=== PATIENT | female | born 1965 | race Caucasian/White ===

== ENCOUNTER 2016-09-23 10:27 | Emergency (ER) | payer OTHER ==
[~2016-09-23] VITALS: Ht 172.7 cm; Wt 79.4 kg
[~2016-09-23 10:27] MED LIST: AMOXIL500 M1 PO; ANAPROX DS550 MG PO; ATIVAN1 MG PO; ATIVAN2 M1 PO; AUGMENTIN 875875 MG PO; BACTRIM DS 8001 TA1 PO; CATAFLAM50 MG PO; CLEOCIN HCL150 MG PO; CORTISPORIN 1%7.5 M1 OP; DARVOCET N 1001 TAB PO; DILANTIN100 MG PO; FLEXERIL10 MG PO; KEFLEX500 MG PO; KEPPRA500 MG PO; LISINOPRIL/HCTZ1 TA2 PO; LORATAB; MOTRIN800 MG PO; MUCINEX D 600 M1 TE1 PO; NEURONTIN400 MG PO; PREDNISONE20 MG PO; PROVERA5 MG PO; REMERON45 MG PO; SEPTRA DS 800 M1 TAB PO; TORADOL10 MG PO; TRAMADOL HCL50 MG PO; TRIMOX500 MG PO; VALIUM10 MG PO; VICODIN 5/500 505 MG PO; ZITHROMAX250 MG PO; ZYRTEC10 MG PO
[2016-09-23 10:35] VITALS: BP 132/71
[2016-09-23] MEDS ORDERED: SEROQUEL100 MG PO (10:39)
[2016-09-23 11:13] LABS: BILIRUBIN NEGATIVE (NEGATIVE); BLOOD NEGATIVE (NEGATIVE); CLARITY CLEAR (CLEAR); COLOR YELLOW (YELLOW); GLUCOSE NEGATIVE (NEGATIVE); KETONE TRACE (NEGATIVE); LEUKO ESTERASE NEGATIVE (NEGATIVE); NITRITE NEGATIVE (NEGATIVE); PH 5.5 (5.0-9.0); PROTEIN NEGATIVE (NEGATIVE); SPECIFIC GRAVITY >= 1.030 (1.005-1.030); UROBILINOGEN 0.2 E.U./dl (0.2-1.0)
[2016-09-23 11:20] LABS: BACTERIA TRACE
[2016-09-23 11:21] LABS: RBC 0-2 rbc/hpf (0-2)
[2016-09-23 11:22] LABS: URINE REFLEX COMMENT NO (NO)
[2016-09-23 11:28] LABS: BASO # 0.1 10*3/uL (0.0-0.1); BASO % 0.8 % (0.0-1.0); EOS % 9.3 % (1.0-4.0); HEMATOCRIT 37.2 % (37.0-47.0); HEMOGLOBIN 12.6 g/dl (12.0-16.0); IG # 0.1 10*3/uL (0.0-0.1); LYMPH # 1.7 10*3/uL (1.3-4.4); LYMPH % 16.3 % (27.0-41.0); MEAN CORPUSCULAR HGB 30.8 pg (27.0-31.0); MEAN CORPUSCULAR HGB CONC 33.9 g/dl (33.0-37.0); MEAN PLATELET VOLUME 10.3 fl (9.6-12.3); MONO % 9.3 % (3.0-9.0); NEUT # 6.6 10*3/uL (2.3-7.9); NEUT % 63.8 % (47.0-73.0); PLATELET COUNT AUTOMATED 238 10*3/uL (130-400); RED BLOOD COUNT 4.09 10*6/uL (4.10-5.10); RED CELL DISTRI WIDTH 13.3 % (0-14.5); WHITE BLOOD COUNT 10.3 10*3/uL (4.8-10.8)
[2016-09-23 11:42] LABS: ALBUMIN 3.1 gm/dl (3.1-4.5); ALKALINE PHOSPHATASE 85 U/L (45-117); BILIRUBIN, TOTAL 0.1 mg/dl (0.2-1.0); BUN 12 mg/dl (7-24); CARBON DIOXIDE 25 mmol/L (21-32); CHLORIDE 110 mmol/L (98-107); EST GLOM FILT AFRICAN AMERICAN > 60 ml/min; GLUCOSE 93 mg/dL (65-99); MAGNESIUM 1.9 mg/dL (1.5-2.1); POTASSIUM 4.2 mmol/L (3.5-5.1); SGOT/AST 13 IU/L (3-35); SGPT/ALT 20 U/L (12-78); SODIUM 139 mmol/L (136-145); TOTAL PROTEIN 6.8 gm/dL (6.4-8.2)
[2016-09-23] MEDS ORDERED: PREDNISONE50 MG PO (12:25)
[2016-09-23] MEDS ORDERED: CLINDAMYCIN150 MG PO (12:25)
== END 2016-09-23 12:52 | disposition home or self-care (01) ==
LOC: ED 10:27
PROVIDERS: Emergency Medicine
DX: R10.30 Lower abdominal pain, unspecified (principal); L02.414 Cutaneous abscess of left upper limb; A63.0 Anogenital (venereal) warts; Z88.6 Allergy status to analgesic agent

== ENCOUNTER 2016-09-27 18:43 | Emergency (ER) | payer OTHER ==
[~2016-09-27] VITALS: Ht 172.7 cm; Wt 77.1 kg
[~2016-09-27 18:43] MED LIST changes: +CLINDAMYCIN150 MG PO; +PREDNISONE50 MG PO; +SEROQUEL100 MG PO
[2016-09-27] MEDS ORDERED: LAMICTAL25 MG PO (18:49)
[2016-09-27 19:10] LABS: BASO # 0.1 10*3/uL (0.0-0.1); BASO % 0.5 % (0.0-1.0); HEMATOCRIT 37.4 % (37.0-47.0); HEMOGLOBIN 12.2 g/dl (12.0-16.0); LYMPH # 1.4 10*3/uL (1.3-4.4); MEAN CELL VOLUME 93.3 fl (81.0-99.0); MEAN CORPUSCULAR HGB 30.4 pg (27.0-31.0); MEAN CORPUSCULAR HGB CONC 32.6 g/dl (33.0-37.0); MEAN PLATELET VOLUME 10.4 fl (9.6-12.3); MONO # 0.3 10*3/uL (0.1-1.0); NEUT # 7.6 10*3/uL (2.3-7.9); NEUT % 81.1 % (47.0-73.0); PLATELET COUNT AUTOMATED 265 10*3/uL (130-400); RED BLOOD COUNT 4.01 10*6/uL (4.10-5.10); RED CELL DISTRI WIDTH 13.2 % (0-14.5); WHITE BLOOD COUNT 9.3 10*3/uL (4.8-10.8)
[2016-09-27 19:24] LABS: ALBUMIN 3.4 gm/dl (3.1-4.5); ALKALINE PHOSPHATASE 76 U/L (45-117); BILIRUBIN, TOTAL 0.2 mg/dl (0.2-1.0); BUN 21 mg/dl (7-24); CARBON DIOXIDE 31 mmol/L (21-32); CHLORIDE 104 mmol/L (98-107); EST GLOM FILT AFRICAN AMERICAN > 60 ml/min; GLUCOSE 106 mg/dL (65-99); POTASSIUM 4.3 mmol/L (3.5-5.1); SGOT/AST 13 IU/L (3-35); SGPT/ALT 29 U/L (12-78); SODIUM 144 mmol/L (136-145); TOTAL PROTEIN 6.8 gm/dL (6.4-8.2)
[2016-09-27 19:40] VITALS: BP 116/80
[2016-09-27 19:41] LABS: BILIRUBIN NEGATIVE (NEGATIVE); BLOOD TRACE-INTACT (NEGATIVE); CLARITY CLEAR (CLEAR); COLOR YELLOW (YELLOW); GLUCOSE NEGATIVE (NEGATIVE); KETONE NEGATIVE (NEGATIVE); LEUKO ESTERASE NEGATIVE (NEGATIVE); NITRITE NEGATIVE (NEGATIVE); PROTEIN NEGATIVE (NEGATIVE); SPECIFIC GRAVITY 1.025 (1.005-1.030); UROBILINOGEN 0.2 E.U./dl (0.2-1.0)
[2016-09-27 19:49] LABS: RBC 0-2 rbc/hpf (0-2)
[2016-09-27 19:50] LABS: URINE REFLEX COMMENT NO (NO); WBC 0-2 wbc/hpf (0-5)
== END 2016-09-27 21:07 | disposition home or self-care (01) ==
LOC: ED 18:43
PROVIDERS: Registered Nurse
DX: R10.30 Lower abdominal pain, unspecified (principal); F17.200 Nicotine dependence, unspecified, uncomplicated; Z88.6 Allergy status to analgesic agent

== ENCOUNTER 2017-02-10 13:52 | Inpatient (IN) | payer OTHER ==
[~2017-02-10] VITALS: Ht 172.7 cm; Wt 80.3 kg
--- NOTE | ~2017-02-10 | PR ---
[place], [place] PROGRESS NOTE NAME: LEROY SCHERER [facility] #: [id number] UNIT #: [id number] ROOM: 519 DOCTOR: SALLY CHAVEZ MD BIRTHDATE: [birth year] DOS: 02/12/2017 SUBJECTIVE: The patient was seen at her bedside today 02/12/2017 for followup of peripheral edema. She is a 51-year-old woman who presented to the hospital with leg swelling. We were asked to determine if she had a cardiac cause. The patient has been diuresed and her fluid balance is negative 3.7 liters for the last 2 days. She is breathing easily and feels well. PHYSICAL EXAMINATION: VITAL SIGNS: Today, her pulse is 82 and regular, blood pressure 117/80. She is afebrile. She weighs 80.3 kg and has a body mass index of 26.9. HEENT: Normocephalic, atraumatic. Extraocular muscles are intact. Sclerae are clear. Pupils are round and reactive to light. The oral mucosa is moist. Tongue is midline. NECK: Supple. She has no jugular distention or hepatojugular reflux. Carotids are full. LUNGS: Respirations are unlabored. Chest is clear to auscultation and percussion. She has no presacral edema. HEART: Has a regular rhythm with a soft S4 gallop, but no S3 or murmur. The PMI is not displaced. ABDOMEN: Benign. EXTREMITIES: Showed trace edema of the ankles. I reviewed the echocardiogram, which showed no evidence for left ventricular systolic dysfunction, significant diastolic dysfunction, or valve disease. She does not show any signs of hepatic failure, renal failure, or malnutrition. Review of her medications show that she is on significant doses of ibuprofen, which can lead to salt and water retention. She is also on Remeron which causes fluid retention in 2% of the patient's IMPRESSION: 1. Peripheral edema, improving with diuresis. 2. Bipolar disorder with major depression. 3. History of seizure disorder. 4. History of substance abuse. PLAN: I think it is most likely that her peripheral edema is due to the combination of ibuprofen, mirtazapine, and the current humidity. I do not see any evidence for a cardiac cause for her swelling. I would recommend that her ibuprofen be decreased or discontinued. She should continue to watch the salt in her diet as much as possible. No other cardiac workup or change in management is indicated at this time. We will be available to see her as needed, but for now, we will sign off her care. I thank the hospitalist physicians for asking our advice regarding her assessment. [place], [place] PROGRESS NOTE NAME: LEROY SCHERER UNIT #: [id number] ROOM: [facility] DOCTOR: SALLY CHAVEZ MD BIRTHDATE: [birth year] SALLY CHAVEZ MD CM:[facility] [id number] SALLY CHAVEZ MD 02/12/17 1125 interface
[~2017-02-10 13:52] MED LIST changes: +LAMICTAL25 MG PO; -SEROQUEL100 MG PO; +SEROQUEL400 M1 PO
[2017-02-10] MEDS ORDERED: SUBOXONE 8 MG-1 EACH SL (13:58)
[2017-02-10] MEDS ORDERED: AMOXICILLIN500 M3 PO (13:58)
[2017-02-10 14:01] VITALS: BP 131/86
[2017-02-10 15:27] LABS: BASO # 0.1 10*3/uL (0.0-0.1); BASO % 0.9 % (0.0-1.0); EOS # 0.2 10*3/uL (0.0-0.4); EOS % 2.4 % (1.0-4.0); HEMATOCRIT 39.2 % (37.0-47.0); HEMOGLOBIN 13.1 g/dl (12.0-16.0); LYMPH # 2.1 10*3/uL (1.3-4.4); LYMPH % 28.2 % (27.0-41.0); MEAN CORPUSCULAR HGB 31.4 pg (27.0-31.0); MEAN CORPUSCULAR HGB CONC 33.4 g/dl (33.0-37.0); MEAN PLATELET VOLUME 10.2 fl (9.6-12.3); MONO # 0.7 10*3/uL (0.1-1.0); MONO % 9.4 % (3.0-9.0); NEUT # 4.4 10*3/uL (2.3-7.9); NEUT % 58.7 % (47.0-73.0); PLATELET COUNT AUTOMATED 200 10*3/uL (130-400); RED BLOOD COUNT 4.17 10*6/uL (4.10-5.10); RED CELL DISTRI WIDTH 13.9 % (0-14.5); WHITE BLOOD COUNT 7.5 10*3/uL (4.8-10.8)
[2017-02-10 15:40] LABS: ACT PARTIAL THROMBO TIME 27.6 SECONDS (20.8-31.5)
[2017-02-10 15:45] LABS: ALBUMIN 3.1 gm/dl (3.1-4.5); ALKALINE PHOSPHATASE 83 U/L (45-117); BUN 10 mg/dl (7-24); CHLORIDE 106 mmol/L (98-107); CKMB 1.5 ng/ml (0.5-3.6); CPK 64 U/L (26-192); CREATININE 0.63 mg/dL (0.55-1.02); LIPASE 91 U/L (73-393); MAGNESIUM 1.8 mg/dL (1.5-2.1); POTASSIUM 4.4 mmol/L (3.5-5.1); SGOT/AST 13 IU/L (3-35); SGPT/ALT 18 U/L (12-78); SODIUM 140 mmol/L (136-145); TOTAL PROTEIN 6.6 gm/dL (6.4-8.2)
[2017-02-10 15:48] LABS: TROPONIN I < 0.015 ng/ml (<0.045)
[2017-02-10 16:20] VITALS: BP 119/85
--- NOTE | 2017-02-10 17:00 | NUR ---
Time: 1699\ A 51 year old FEMALE admitted to 5E under services of DR. PADMINI FOWLER,TRUONG. Pt. arrived via stretcher from ER. Chief complaint: FEET AND ANKLE SWELLING. PARTHA BAUGH
[2017-02-10] MEDS ORDERED: CLARITIN10 MG PO (17:03)
[2017-02-10] MEDS ORDERED: DILANTIN100 MG PO (17:04)
[2017-02-10] MEDS ORDERED: NEURONTIN600 MG PO (17:04)
[2017-02-10] MEDS ORDERED: IBU800 M1 PO (17:05)
--- NOTE | 2017-02-10 17:06 | NUR ---
PT MED REC UPDATED AND VERIFIED WITH PT'S PHARMACY RUSS REAVES.
--- NOTE | 2017-02-10 17:26 | NUR ---
DR. CHAVEZ NOTIFIED OF CONSULT.
[2017-02-10 17:49] VITALS: BP 146/88
--- NOTE | 2017-02-10 19:40 | NUR ---
reviewed home medications and nothing new added by patient.
[2017-02-10 20:00] VITALS: BP 124/72
[2017-02-11] VITALS: BP 107/58
[2017-02-11] MEDS ORDERED: DEPAKOTE DR500 MG PO (06:38)
--- NOTE | 2017-02-11 06:39 | NUR ---
WALKED INTO PATIENT ROOM AND PATIENT WAS TAKING A PRESCRIPTION PILL. ASKED PT. WHAT SHE TOOK AND SHE SAID "I JUST TOOK 800 MOTRIN." EXPLAINED TO PATIENT THAT WE DON'T SELF MEDICATE WHILE IN THE HOSPITAL AND FOUND PATIENT HAD HER HOME MEDICATIONS IN HER PURSE WITH HER. TOOK PT. HOME MEDICATIONS TO COUNT AND SEND TO PHARMACY.
[2017-02-11 06:48] LABS: HEMATOCRIT 44.3 % (37.0-47.0); HEMOGLOBIN 14.5 g/dl (12.0-16.0); MEAN CELL VOLUME 92.7 fl (81.0-99.0); MEAN CORPUSCULAR HGB 30.3 pg (27.0-31.0); MEAN CORPUSCULAR HGB CONC 32.7 g/dl (33.0-37.0); MEAN PLATELET VOLUME 11.4 fl (9.6-12.3); PLATELET COUNT AUTOMATED 244 10*3/uL (130-400); RED BLOOD COUNT 4.78 10*6/uL (4.10-5.10); RED CELL DISTRI WIDTH 13.5 % (0-14.5)
[2017-02-11 07:10] LABS: ALBUMIN 2.9 gm/dl (3.1-4.5); ALKALINE PHOSPHATASE 89 U/L (45-117); BUN 17 mg/dl (7-24); CHLORIDE 105 mmol/L (98-107); CHOLESTEROL 179 mg/dL (<200); CREATININE 1.04 mg/dL (0.55-1.02); FREE T4 0.55 ng/dl (0.76-1.46); HDL CHOLESTEROL 63 mg/dl (40-60); LDL CHOLESTEROL 96 mg/dL (9-159); MAGNESIUM 1.7 mg/dL (1.5-2.1); PHOSPHOROUS 3.8 mg/dL (2.5-4.9); POTASSIUM 3.8 mmol/L (3.5-5.1); SGOT/AST 17 IU/L (3-35); SGPT/ALT 21 U/L (12-78); SODIUM 140 mmol/L (136-145); TOTAL PROTEIN 6.8 gm/dL (6.4-8.2); TRIGLYCERIDES 100 mg/dl (<150); VLDL CHOLESTEROL 20 mg/dL (6-40)
[2017-02-11 07:15] LABS: THYROID STIM HORMONE (HS) 0.618 uIU/ml (0.358-4.75)
[2017-02-11 07:22] LABS: BASOPHILS 1 % (0-1); PLATELET SUFFICIENCY NORMAL (NORMAL); TOTAL CELLS COUNTED 100 #CELLS
[2017-02-11 07:55] LABS: VITAMIN D, 25-HYDROXY 28.4 ng/mL (30-100)
[2017-02-11 08:00] VITALS: BP 135/80
--- NOTE | 2017-02-11 08:16 | NUR ---
DENIES ANY COMPLAINTS.
--- NOTE | 2017-02-11 08:54 | NUR ---
Document Imaging Specialist in to talk to patient. Patient states lives at HOME IN AN APARTMENT ALONE with . There are 0 steps in the home. Physician: DR DIETRICH Pharmacy: [facility] Home health services: NONE Patient's level of ADLs: INDEPENDENT Patient has working utilities: YES DME: NONE Follow-up physician's appointment after d/c: PREFERS TO MAKE HER OWN APPT Does patient want to access PORTAL?: Discharge plan HOME. ALEXY AYOUB
--- NOTE | 2017-02-11 10:00 | NUR ---
AM MEDS TAKEN.
--- NOTE | 2017-02-11 11:00 | NUR ---
MEDICATED WITH MOTRIN FOR GENERALIZED PAIN.
--- NOTE | 2017-02-11 12:00 | NUR ---
NO FURTHER COMPLAINTS OF PAIN.
[2017-02-11 16:00] VITALS: BP 112/68
--- NOTE | 2017-02-11 19:06 | NUR ---
PATIENT UP AND AROUND WITH NO COMPLAINTS.
--- NOTE | 2017-02-11 19:30 | NUR ---
PATIENT MEDICATED WITH MOTRIN FOR C/O GENERALIZED DISCOMFORT. SEE EMAR. REINFORCED USE OF CALL LIGHT.
[2017-02-11 20:00] VITALS: BP 125/77
--- NOTE | 2017-02-11 21:00 | NUR ---
PATIENT RESTING QUIETLY. NO FURTHER C/O VOICED.
[2017-02-12] VITALS: BP 126/78
--- NOTE | 2017-02-12 00:33 | NUR ---
PATIENT MEDICATED WITH TYLENOL PER PRN ORDER FOR C/O LOWER BACK /SIDE PAIN. RATED PAIN A 7/10 WITH 10 BEING THE WORST. SEE EMAR. REINFORCED USE OF CALL LIGHT.
[2017-02-12 06:09] LABS: HEMATOCRIT 40.5 % (37.0-47.0); HEMOGLOBIN 13.3 g/dl (12.0-16.0); MEAN CELL VOLUME 93.5 fl (81.0-99.0); MEAN CORPUSCULAR HGB 30.7 pg (27.0-31.0); MEAN CORPUSCULAR HGB CONC 32.8 g/dl (33.0-37.0); MEAN PLATELET VOLUME 11.5 fl (9.6-12.3); PLATELET COUNT AUTOMATED 230 10*3/uL (130-400); RED BLOOD COUNT 4.33 10*6/uL (4.10-5.10); RED CELL DISTRI WIDTH 13.9 % (0-14.5); WHITE BLOOD COUNT 20.4 10*3/uL (4.8-10.8)
[2017-02-12 06:31] LABS: PLATELET SUFFICIENCY NORMAL (NORMAL); TOTAL CELLS COUNTED 100 #CELLS
[2017-02-12 06:47] LABS: ALBUMIN 3.3 gm/dl (3.1-4.5); ALKALINE PHOSPHATASE 86 U/L (45-117); BUN 17 mg/dl (7-24); CHLORIDE 104 mmol/L (98-107); CREATININE 0.77 mg/dL (0.55-1.02); POTASSIUM 4.3 mmol/L (3.5-5.1); SGOT/AST 18 IU/L (3-35); SGPT/ALT 25 U/L (12-78); SODIUM 138 mmol/L (136-145); TOTAL PROTEIN 7.1 gm/dL (6.4-8.2)
[2017-02-12 08:00] VITALS: BP 117/80
--- NOTE | 2017-02-12 08:53 | NUR ---
LACE BURN OUT TENDER VS. NO DC NEEDS.
--- NOTE | 2017-02-12 09:00 | NUR ---
PT RESTING IN BED, NO DISTRESS NOTED. PT DENIES ANY SOB, ON ROOM AIR. PT DOES HAVE A HACKING COUGH. EDEMA HAS DECREASED IN LOWER LEGS. PT DENIES ANY COMPLAINTS AT THIS TIME. CALL LIGHT WITHIN REACH.
[2017-02-12 12:00] VITALS: BP 107/73
[2017-02-12] MEDS ORDERED: NICODERM CQ1 EAC2 T (13:37)
[2017-02-12] MEDS ORDERED: AEROECLIPSE II1 EACH NEB (13:37)
[2017-02-12] MEDS ORDERED: PREDNISONE10 MG PO (13:37)
--- NOTE | 2017-02-12 13:59 | NUR ---
Discharge instructions reviewed with patient/family. Patient receptive and verbalizes understanding. Follow-up care arranged. Written instructions given to patient/family. IV site removed, pt denied transport and walked to lobby to meet ride. [address] [address]
[2017-02-13 06:11] LABS: HEPATITIS C AB <0.1 (0.0-0.9)
== END 2017-02-12 13:59 | disposition home or self-care (01) | DRG 292 ==
LOC: ED 13:52 → EDHOLD 15:58 → 5E 15:58
PROVIDERS: Internal Medicine; Nurse Practitioner Family; ADMIT Internal Medicine
DX: I50.9 Heart failure, unspecified (principal); E44.0 Moderate protein-calorie malnutrition; J44.9 Chronic obstructive pulmonary disease, unspecified; E07.81 Sick-euthyroid syndrome; D72.9 Disorder of white blood cells, unspecified; G40.909 Epilepsy, unspecified, not intractable, without status epilepticus; F31.9 Bipolar disorder, unspecified; F17.210 Nicotine dependence, cigarettes, uncomplicated; E66.3 Overweight; E55.9 Vitamin D deficiency, unspecified; T43.025A Adverse effect of tetracyclic antidepressants, initial encounter; T39.315A Adverse effect of propionic acid derivatives, initial encounter; I34.0 Nonrheumatic mitral (valve) insufficiency; Z88.5 Allergy status to narcotic agent; Z79.899 Other long term (current) drug therapy; Z90.49 Acquired absence of other specified parts of digestive tract; Z83.3 Family history of diabetes mellitus; Z82.49 Family history of ischemic heart disease and other diseases of the circulatory system; Y92.89 Other specified places as the place of occurrence of the external cause; Z68.26 Body mass index [BMI] 26.0-26.9, adult; R09.89 Other specified symptoms and signs involving the circulatory and respiratory systems

== ENCOUNTER 2017-03-07 15:08 | Emergency (ER) | payer OTHER ==
[~2017-03-07] VITALS: Wt 77.1 kg
[~2017-03-07 15:08] MED LIST changes: +AEROECLIPSE II1 EACH NEB; +AMOXICILLIN500 M3 PO; +CLARITIN10 MG PO; +DEPAKOTE DR500 MG PO; +IBU800 M1 PO; +NEURONTIN600 MG PO; +NICODERM CQ1 EAC2 T; +PREDNISONE10 MG PO; +SUBOXONE 8 MG-1 EACH SL
[2017-03-07 15:25] VITALS: BP 111/73
[2017-03-07 16:27] LABS: BASO # 0.1 10*3/uL (0.0-0.1); BASO % 0.9 % (0.0-1.0); EOS # 0.3 10*3/uL (0.0-0.4); EOS % 3.6 % (1.0-4.0); HEMATOCRIT 47.4 % (37.0-47.0); LYMPH # 2.9 10*3/uL (1.3-4.4); LYMPH % 31.3 % (27.0-41.0); MEAN CELL VOLUME 90.8 fl (81.0-99.0); MEAN CORPUSCULAR HGB 30.7 pg (27.0-31.0); MEAN CORPUSCULAR HGB CONC 33.8 g/dl (33.0-37.0); MEAN PLATELET VOLUME 10.3 fl (9.6-12.3); MONO # 0.8 10*3/uL (0.1-1.0); MONO % 8.5 % (3.0-9.0); NEUT # 5.2 10*3/uL (2.3-7.9); NEUT % 55.5 % (47.0-73.0); PLATELET COUNT AUTOMATED 255 10*3/uL (130-400); RED BLOOD COUNT 5.22 10*6/uL (4.10-5.10); RED CELL DISTRI WIDTH 13.2 % (0-14.5); WHITE BLOOD COUNT 9.4 10*3/uL (4.8-10.8)
[2017-03-07 16:40] LABS: ALBUMIN 3.7 gm/dl (3.1-4.5); ALKALINE PHOSPHATASE 109 U/L (45-117); BUN 14 mg/dl (7-24); CHLORIDE 101 mmol/L (98-107); CREATININE 0.76 mg/dL (0.55-1.02); POTASSIUM 3.9 mmol/L (3.5-5.1); SGOT/AST 19 IU/L (3-35); SGPT/ALT 31 U/L (12-78); SODIUM 135 mmol/L (136-145); TOTAL PROTEIN 7.8 gm/dL (6.4-8.2)
[2017-03-07] MEDS ORDERED: SEPTDS PO (17:28)
== END 2017-03-07 17:30 | disposition home or self-care (01) ==
LOC: ED 15:08
PROVIDERS: Nurse Practitioner Family
DX: M79.89 Other specified soft tissue disorders (principal); F12.10 Cannabis abuse, uncomplicated; F17.200 Nicotine dependence, unspecified, uncomplicated; F14.10 Cocaine abuse, uncomplicated; Z88.6 Allergy status to analgesic agent; Z79.899 Other long term (current) drug therapy

== ENCOUNTER 2017-09-13 19:50 | Emergency (ER) | payer OTHER ==
[~2017-09-13] VITALS: Wt 71.7 kg
[~2017-09-13 19:50] MED LIST changes: +SEPTDS PO
[2017-09-13] MEDS ORDERED: ROPINIROLE HYDRO3 MG PO (20:09)
[2017-09-13 20:51] LABS: BILIRUBIN NEGATIVE (NEGATIVE); BLOOD 3+ (NEGATIVE); CLARITY SL CLOUDY (CLEAR); COLOR YELLOW (YELLOW); GLUCOSE NEGATIVE (NEGATIVE); KETONE NEGATIVE (NEGATIVE); LEUKO ESTERASE NEGATIVE (NEGATIVE); NITRITE NEGATIVE (NEGATIVE); PH 5.5 (5.0-9.0); SPECIFIC GRAVITY >= 1.030 (1.005-1.030); UROBILINOGEN 0.2 E.U./dl (0.2-1.0)
[2017-09-13 21:12] LABS: BACTERIA TRACE; EPITHELIAL CELLS 30-35; RBC TNTC rbc/hpf (0-2)
[2017-09-13 21:23] VITALS: BP 147/88
== END 2017-09-13 21:44 | disposition home or self-care (01) ==
LOC: ED 19:50
PROVIDERS: Student in an Organized Health Care Education/Training Program
DX: N30.90 Cystitis, unspecified without hematuria (principal); G25.81 Restless legs syndrome; F17.200 Nicotine dependence, unspecified, uncomplicated; F12.10 Cannabis abuse, uncomplicated; E66.9 Obesity, unspecified; G40.909 Epilepsy, unspecified, not intractable, without status epilepticus; Z68.29 Body mass index [BMI] 29.0-29.9, adult; Z90.49 Acquired absence of other specified parts of digestive tract; Z98.51 Tubal ligation status; Z98.890 Other specified postprocedural states; Z79.899 Other long term (current) drug therapy; Z88.5 Allergy status to narcotic agent

== ENCOUNTER 2017-11-22 23:21 | Emergency (ER) | payer OTHER ==
[~2017-11-22] VITALS: Wt 69.9 kg
[~2017-11-22 23:21] MED LIST changes: +ROPINIROLE HYDRO3 MG PO
[2017-11-22 23:23] VITALS: BP 171/104
[2017-11-23] MEDS ORDERED: CLINDAMYCIN HC300 MG PO (00:06)
== END 2017-11-23 00:09 | disposition home or self-care (01) ==
LOC: ED 23:21
DX: K08.89 Other specified disorders of teeth and supporting structures (principal); F17.200 Nicotine dependence, unspecified, uncomplicated; F12.10 Cannabis abuse, uncomplicated; F14.10 Cocaine abuse, uncomplicated; Z90.49 Acquired absence of other specified parts of digestive tract; Z79.899 Other long term (current) drug therapy

== ENCOUNTER 2017-12-14 15:55 | Emergency (ER) | payer SELFPAY ==
[~2017-12-14] VITALS: Ht 172.7 cm; Wt 72.6 kg
[~2017-12-14 15:55] MED LIST changes: +CLINDAMYCIN HC300 MG PO
[2017-12-14 15:57] VITALS: BP 157/92
[2017-12-14] MEDS ORDERED: ZANTAC 150150 MG PO (16:06)
[2017-12-14] MEDS ORDERED: ZOFRAN4 MG PO (16:06)
[2017-12-14] MEDS ORDERED: CARAFATE1 G1 PO (16:06)
[2017-12-14] MEDS ORDERED: SUNMARK OMEPRAZ20 M1 PO (16:06)
[2017-12-14] MEDS ORDERED: CLINDAMYCIN150 MG PO (16:17)
== END 2017-12-14 16:27 | disposition home or self-care (01) ==
LOC: ED 15:55
DX: K04.7 Periapical abscess without sinus (principal); R03.0 Elevated blood-pressure reading, without diagnosis of hypertension; F17.200 Nicotine dependence, unspecified, uncomplicated; F12.10 Cannabis abuse, uncomplicated; F14.10 Cocaine abuse, uncomplicated; E66.3 Overweight; G40.909 Epilepsy, unspecified, not intractable, without status epilepticus; G25.81 Restless legs syndrome; Z98.51 Tubal ligation status; Z98.890 Other specified postprocedural states; Z90.49 Acquired absence of other specified parts of digestive tract; Z68.29 Body mass index [BMI] 29.0-29.9, adult; Z79.899 Other long term (current) drug therapy

== ENCOUNTER 2018-08-09 13:33 | Emergency (ER) | payer OTHER ==
[~2018-08-09] VITALS: Ht 172.7 cm; Wt 72.6 kg
[~2018-08-09 13:33] MED LIST changes: +CARAFATE1 G1 PO; +SUNMARK OMEPRAZ20 M1 PO; +ZANTAC 150150 MG PO; +ZOFRAN4 MG PO
[2018-08-09 13:37] VITALS: BP 152/93
[2018-08-09 14:12] LABS: BASO # 0.1 10*3/uL (0.0-0.1); BASO % 0.6 % (0.0-1.0); EOS % 0.1 % (1.0-4.0); HEMATOCRIT 44.9 % (37.0-47.0); HEMOGLOBIN 15.1 g/dl (12.0-16.0); LYMPH # 1.2 10*3/uL (1.3-4.4); LYMPH % 8.5 % (27.0-41.0); MEAN CORPUSCULAR HGB 31.3 pg (27.0-31.0); MEAN CORPUSCULAR HGB CONC 33.6 g/dl (33.0-37.0); MEAN PLATELET VOLUME 10.1 fl (9.6-12.3); MONO # 0.6 10*3/uL (0.1-1.0); MONO % 4.1 % (3.0-9.0); NEUT # 11.7 10*3/uL (2.3-7.9); NEUT % 86.3 % (47.0-73.0); PLATELET COUNT AUTOMATED 270 10*3/uL (130-400); RED BLOOD COUNT 4.83 10*6/uL (4.10-5.10); RED CELL DISTRI WIDTH 13.2 % (0-14.5); WHITE BLOOD COUNT 13.5 10*3/uL (4.8-10.8)
[2018-08-09 14:35] LABS: ACT PARTIAL THROMBO TIME 24.9 SECONDS (20.8-31.5)
[2018-08-09 14:40] LABS: ALBUMIN 3.8 gm/dl (3.1-4.5); ALKALINE PHOSPHATASE 102 U/L (45-117); BUN 15 mg/dl (7-24); CHLORIDE 102 mmol/L (98-107); CREATININE 0.81 mg/dL (0.55-1.02); ETHYL ALCOHOL < 3.0 mg/dl (<3); POTASSIUM 4.2 mmol/L (3.5-5.1); SGOT/AST 15 IU/L (3-35); SGPT/ALT 26 U/L (12-78); SODIUM 137 mmol/L (136-145); TOTAL PROTEIN 8.3 gm/dL (6.4-8.2)
[2018-08-24] MEDS ORDERED: ROBAXIN500 M1 PO (19:26)
[2018-08-24] MEDS ORDERED: MEDROL DOSEPAK4 MG PO (19:26)
== END 2018-08-09 15:12 | disposition home or self-care (01) ==
LOC: ED 13:33
PROVIDERS: Emergency Medicine
DX: G40.409 Other generalized epilepsy and epileptic syndromes, not intractable, without status epilepticus (principal); G62.9 Polyneuropathy, unspecified; F17.200 Nicotine dependence, unspecified, uncomplicated; Z79.2 Long term (current) use of antibiotics; Z90.49 Acquired absence of other specified parts of digestive tract

== ENCOUNTER 2019-06-02 12:44 | Emergency (ER) | payer OTHER ==
[2019-06-02 12:44] VITALS: BP 146/88
[~2019-06-02 12:44] MED LIST changes: +MEDROL DOSEPAK4 MG PO; +ROBAXIN500 M1 PO
[2019-06-02] MEDS ORDERED: DEPAKOTE125 MG PO (13:00)
[2019-06-02 13:05] LABS: HEMATOCRIT 40.3 % (37.0-47.0); HEMOGLOBIN 14.1 g/dl (12.0-16.0); MEAN CELL VOLUME 90.2 fl (81.0-99.0); MEAN CORPUSCULAR HGB 31.5 pg (27.0-31.0); MEAN PLATELET VOLUME 10.7 fl (9.6-12.3); PLATELET COUNT AUTOMATED 274 10*3/uL (130-400); RED BLOOD COUNT 4.47 10*6/uL (4.10-5.10); RED CELL DISTRI WIDTH 11.9 % (0-14.5); WHITE BLOOD COUNT 11.8 10*3/uL (4.8-10.8)
[2019-06-02 13:15] LABS: ACT PARTIAL THROMBO TIME 33.9 SECONDS (20.0-32.1)
[2019-06-02 13:22] LABS: ALBUMIN 3.9 gm/dl (3.1-4.5); ALKALINE PHOSPHATASE 89 U/L (45-117); BUN 14 mg/dl (7-24); CHLORIDE 105 mmol/L (98-107); CREATININE 0.74 mg/dL (0.55-1.02); POTASSIUM 4.2 mmol/L (3.5-5.1); SGOT/AST 30 IU/L (3-35); SGPT/ALT 29 U/L (12-78); SODIUM 139 mmol/L (136-145); TOTAL PROTEIN 7.5 gm/dL (6.4-8.2)
[2019-06-02 13:26] LABS: BASOPHILS 4 % (0-1); ETHYL ALCOHOL < 3.0 mg/dl (<3); PLATELET SUFFICIENCY NORMAL (NORMAL); TOTAL CELLS COUNTED 100 #CELLS
[2019-06-02 13:30] LABS: B-hCG (QUALITATIVE) NEGATIVE (NEGATIVE)
== END 2019-06-02 13:52 | disposition home or self-care (01) ==
LOC: ED 12:44
PROVIDERS: Emergency Medicine
DX: G40.909 Epilepsy, unspecified, not intractable, without status epilepticus (principal); F31.9 Bipolar disorder, unspecified; Z79.899 Other long term (current) drug therapy

== ENCOUNTER 2020-03-12 22:56 | Emergency (ER) | payer OTHER ==
[~2020-03-12] VITALS: Ht 172.7 cm; Wt 77.1 kg
[~2020-03-12 22:56] MED LIST changes: +DEPAKOTE125 MG PO
[2020-03-12 23:03] VITALS: BP 158/99
[2020-03-13] MEDS ORDERED: CYCLOBENZAPRINE10 MG PO (00:26)
[2020-03-13] MEDS ORDERED: PREDNISONE50 MG PO (00:26)
== END 2020-03-13 00:30 | disposition home or self-care (01) ==
LOC: ED 22:56
DX: G57.00 Lesion of sciatic nerve, unspecified lower limb (principal); M62.838 Other muscle spasm

== ENCOUNTER → 2020-04-13 | Outpatient (CLI) | payer OTHER ==
[~2020-04-13] MED LIST changes: +CYCLOBENZAPRINE10 MG PO; +NAPROSYN500 MG PO; +TYLENOL325 M1 PO
[2020-04-13 10:05] LABS: BASO # 0.1 10*3/uL (0.0-0.1); BASO % 0.8 % (0.0-1.0); EOS # 0.2 10*3/uL (0.0-0.4); EOS % 1.4 % (1.0-4.0); HEMATOCRIT 41.9 % (37.0-47.0); LYMPH % 19.2 % (27.0-41.0); MEAN CELL VOLUME 93.5 fl (81.0-99.0); MEAN CORPUSCULAR HGB CONC 33.2 g/dl (33.0-37.0); MEAN PLATELET VOLUME 10.5 fl (9.6-12.3); MONO # 1.1 10*3/uL (0.1-1.0); MONO % 10.4 % (3.0-9.0); NEUT # 7.1 10*3/uL (2.3-7.9); NEUT % 67.7 % (47.0-73.0); PLATELET COUNT AUTOMATED 284 10*3/uL (130-400); RED BLOOD COUNT 4.48 10*6/uL (4.10-5.10); RED CELL DISTRI WIDTH 13.1 % (0-14.5); WHITE BLOOD COUNT 10.6 10*3/uL (4.8-10.8)
[2020-04-13 10:36] LABS: ALBUMIN 3.4 gm/dl (3.1-4.5); CREATININE 1.2 mg/dL (0.55-1.02); POTASSIUM 4.5 mmol/L (3.5-5.1); TOTAL PROTEIN 7.1 gm/dL (6.4-8.2)
[2020-04-13 10:42] LABS: FREE T4 1.05 ng/dl (0.76-1.46); THYROID STIM HORMONE (HS) 5.17 uIU/ml (0.358-4.75)
[2020-04-14 09:09] LABS: CREATININE,URINE 206.5 mg/dL (Not Estab.)
== END | disposition home or self-care (01) ==
LOC: LAB 09:21
PROVIDERS: ATTEND Family Medicine
DX: I10 Essential (primary) hypertension (principal)

== ENCOUNTER 2020-05-11 06:12 | Emergency (ER) | payer OTHER ==
[~2020-05-11] VITALS: Ht 170.1 cm; Wt 77.1 kg
[~2020-05-11 06:12] MED LIST changes: -NAPROSYN500 MG PO; -TYLENOL325 M1 PO
[2020-05-11 06:18] VITALS: BP 132/90
[2020-05-11 07:44] LABS: BASO # 0.1 10*3/uL (0.0-0.1); BASO % 0.7 % (0.0-1.0); EOS # 0.3 10*3/uL (0.0-0.4); EOS % 2.3 % (1.0-4.0); HEMATOCRIT 42.6 % (37.0-47.0); LYMPH # 1.9 10*3/uL (1.3-4.4); LYMPH % 13.6 % (27.0-41.0); MEAN CELL VOLUME 89.3 fl (81.0-99.0); MEAN CORPUSCULAR HGB CONC 33.6 g/dl (33.0-37.0); MEAN PLATELET VOLUME 10.2 fl (9.6-12.3); MONO # 0.9 10*3/uL (0.1-1.0); MONO % 6.5 % (3.0-9.0); NEUT # 10.4 10*3/uL (2.3-7.9); NEUT % 76.5 % (47.0-73.0); PLATELET COUNT AUTOMATED 298 10*3/uL (130-400); RED BLOOD COUNT 4.77 10*6/uL (4.10-5.10); RED CELL DISTRI WIDTH 12.5 % (0-14.5); WHITE BLOOD COUNT 13.6 10*3/uL (4.8-10.8)
[2020-05-11 07:55] LABS: ACT PARTIAL THROMBO TIME 30.5 SECONDS (20.0-32.1)
[2020-05-11 08:00] LABS: ALBUMIN 3.2 gm/dl (3.1-4.5); ALKALINE PHOSPHATASE 87 U/L (45-117); BUN 23 mg/dl (7-24); CHLORIDE 108 mmol/L (98-107); CREATININE 0.69 mg/dL (0.55-1.02); POTASSIUM 4.3 mmol/L (3.5-5.1); SGOT/AST 15 IU/L (3-35); SGPT/ALT 20 U/L (12-78); SODIUM 138 mmol/L (136-145); TOTAL PROTEIN 6.8 gm/dL (6.4-8.2)
[2020-05-11] MEDS ORDERED: NAPROSYN500 MG PO (08:25)
[2020-05-11] MEDS ORDERED: TYLENOL325 M1 PO (08:25)
== END 2020-05-11 09:29 | disposition home or self-care (01) ==
LOC: ED 06:12
PROVIDERS: Emergency Medicine
DX: G57.02 Lesion of sciatic nerve, left lower limb (principal); M54.5 Low back pain; Z79.899 Other long term (current) drug therapy

== ENCOUNTER 2020-08-21 19:14 | Inpatient (IN) | payer OTHER ==
[~2020-08-21] VITALS: Ht 172.7 cm; Wt 76.3 kg
[~2020-08-21 19:14] MED LIST changes: +NAPROSYN500 MG PO; +TYLENOL325 M1 PO
[2020-08-21 19:22] VITALS: BP 120/78
[2020-08-21 21:13] LABS: HEMATOCRIT 45.2 % (37.0-47.0); MEAN CELL VOLUME 91.3 fl (81.0-99.0); MEAN CORPUSCULAR HGB 30.9 pg (27.0-31.0); MEAN CORPUSCULAR HGB CONC 33.8 g/dl (33.0-37.0); MEAN PLATELET VOLUME 10.7 fl (9.6-12.3); PLATELET COUNT AUTOMATED 272 10*3/uL (130-400); RED BLOOD COUNT 4.95 10*6/uL (4.10-5.10); RED CELL DISTRI WIDTH 12.8 % (0-14.5); WHITE BLOOD COUNT 23.3 10*3/uL (4.8-10.8)
[2020-08-21 21:25] LABS: ACT PARTIAL THROMBO TIME 30.6 SECONDS (20.0-32.1)
[2020-08-21 21:28] LABS: ALBUMIN 3.1 gm/dl (3.1-4.5); CREATININE 1.75 mg/dL (0.55-1.02); POTASSIUM 3.4 mmol/L (3.5-5.1); TOTAL PROTEIN 7.9 gm/dL (6.4-8.2)
[2020-08-21 21:43] LABS: PLATELET SUFFICIENCY NORMAL (NORMAL); TOTAL CELLS COUNTED 100 #CELLS
[2020-08-21 22:15] VITALS: BP 79/45
[2020-08-21 22:50] VITALS: BP 88/52
[2020-08-22] VITALS (8 sets, daily range): BP systolic 91–100; BP diastolic 52–63
[2020-08-22] MEDS ORDERED: IBU800 M1 PO (03:24)
[2020-08-22] MEDS ORDERED: ZESTORETIC 10-1 EACH PO (03:25)
[2020-08-22] MEDS ORDERED: AMOXICILLIN500 M2 PO (03:26)
[2020-08-22] MEDS ORDERED: FEXOFENADINE H180 M1 PO (03:27)
[2020-08-22] MEDS ORDERED: BENZONATATE100 M1 PO (03:28)
[2020-08-22] MEDS ORDERED: OXYBUTYNIN10 MG PO (03:28)
[2020-08-22] MEDS ORDERED: SEROQUEL XR300 MG PO (04:18)
[2020-08-22 06:22] LABS: HEMATOCRIT 37.7 % (37.0-47.0); MEAN CELL VOLUME 92.9 fl (81.0-99.0); MEAN CORPUSCULAR HGB 30.5 pg (27.0-31.0); MEAN CORPUSCULAR HGB CONC 32.9 g/dl (33.0-37.0); MEAN PLATELET VOLUME 11.5 fl (9.6-12.3); PLATELET COUNT AUTOMATED 211 10*3/uL (130-400); RED BLOOD COUNT 4.06 10*6/uL (4.10-5.10); WHITE BLOOD COUNT 14.8 10*3/uL (4.8-10.8)
[2020-08-22 06:38] LABS: CREATININE 1.91 mg/dL (0.55-1.02); POTASSIUM 3.7 mmol/L (3.5-5.1)
[2020-08-22 07:20] LABS: VITAMIN D, 25-HYDROXY 26.2 ng/mL (30-100)
[2020-08-22 07:23] LABS: PLATELET SUFFICIENCY NORMAL (NORMAL); TOTAL CELLS COUNTED 100 #CELLS
[2020-08-22 07:24] LABS: BURR CELLS FEW
[2020-08-23] VITALS: BP 98/50
[2020-08-23 00:16] LABS: BILIRUBIN Negative (Negative); BLOOD Negative (Negative); CLARITY Clear (Clear); COLOR Yellow (Yellow); GLUCOSE Negative (Negative); KETONE Negative (Negative); LEUKO ESTERASE Negative (Negative); NITRITE Negative (Negative); SPECIFIC GRAVITY 1.015 (1.001-1.030); UROBILINOGEN 0.2 E.U./dl (0.0-1.0)
[2020-08-23 00:36] LABS: RBC 0-2 rbc/hpf (0-2)
[2020-08-23 06:28] LABS: BASO # 0.1 10*3/uL (0.0-0.1); BASO % 0.5 % (0.0-1.0); EOS # 0.1 10*3/uL (0.0-0.4); EOS % 1.4 % (1.0-4.0); HEMATOCRIT 36.5 % (37.0-47.0); LYMPH # 1.5 10*3/uL (1.3-4.4); LYMPH % 15.6 % (27.0-41.0); MEAN CORPUSCULAR HGB 30.7 pg (27.0-31.0); MEAN CORPUSCULAR HGB CONC 33.7 g/dl (33.0-37.0); MONO % 10.4 % (3.0-9.0); NEUT # 6.8 10*3/uL (2.3-7.9); NEUT % 71.6 % (47.0-73.0); PLATELET COUNT AUTOMATED 210 10*3/uL (130-400); RED BLOOD COUNT 4.01 10*6/uL (4.10-5.10); RED CELL DISTRI WIDTH 12.6 % (0-14.5); WHITE BLOOD COUNT 9.6 10*3/uL (4.8-10.8)
[2020-08-23 06:56] LABS: ALBUMIN 2.2 gm/dl (3.1-4.5); ALKALINE PHOSPHATASE 91 U/L (45-117); CHLORIDE 107 mmol/L (98-107); CREATININE 0.95 mg/dL (0.55-1.02); POTASSIUM 3.5 mmol/L (3.5-5.1); SGOT/AST 7 IU/L (3-35); SGPT/ALT 15 U/L (12-78); SODIUM 138 mmol/L (136-145); TOTAL PROTEIN 5.8 gm/dL (6.4-8.2)
[2020-08-23 07:02] LABS: BUN 20 mg/dl (7-24)
[2020-08-23 08:00] VITALS: BP 132/83
[2020-08-23] MEDS ORDERED: VANCOCIN125 M1 PO (15:26)
== END 2020-08-23 14:38 | disposition left against medical advice (07) | DRG 720 ==
LOC: ED 19:14 → EDHOLD 08-22 00:26 → 5E 08-22 00:26
PROVIDERS: Emergency Medicine; Internal Medicine; Internal Medicine Nephrology; ADMIT Internal Medicine; ATTEND Internal Medicine
DX: A41.9 Sepsis, unspecified organism (principal); A04.72 Enterocolitis due to Clostridium difficile, not specified as recurrent; N17.0 Acute kidney failure with tubular necrosis; E86.0 Dehydration; E87.1 Hypo-osmolality and hyponatremia; F19.10 Other psychoactive substance abuse, uncomplicated; F31.9 Bipolar disorder, unspecified; K76.0 Fatty (change of) liver, not elsewhere classified; F17.210 Nicotine dependence, cigarettes, uncomplicated; F12.10 Cannabis abuse, uncomplicated; E55.9 Vitamin D deficiency, unspecified; E87.6 Hypokalemia; R73.9 Hyperglycemia, unspecified; J44.9 Chronic obstructive pulmonary disease, unspecified; R74.8 Abnormal levels of other serum enzymes; I95.9 Hypotension, unspecified; G40.909 Epilepsy, unspecified, not intractable, without status epilepticus; Z79.899 Other long term (current) drug therapy; Z83.3 Family history of diabetes mellitus; Z80.9 Family history of malignant neoplasm, unspecified; Z82.49 Family history of ischemic heart disease and other diseases of the circulatory system; Z53.29 Procedure and treatment not carried out because of patient's decision for other reasons

== ENCOUNTER 2021-03-06 14:49 | Emergency (ER) | payer OTHER ==
[~2021-03-06] VITALS: Ht 172.7 cm; Wt 77.1 kg
[~2021-03-06 14:49] MED LIST changes: +AMOXICILLIN500 M2 PO; +BENZONATATE100 M1 PO; +FEXOFENADINE H180 M1 PO; +OXYBUTYNIN10 MG PO; +SEROQUEL XR300 MG PO; +VANCOCIN125 M1 PO; +ZESTORETIC 10-1 EACH PO
[2021-03-06 15:24] VITALS: BP 130/70
[2021-03-07] MEDS ORDERED: NAPROXEN250 MG PO (02:00)
== END 2021-03-06 18:00 | disposition admitted as inpatient to this hospital (09) ==
LOC: ED 14:49
DX: R07.81 Pleurodynia (principal); M25.551 Pain in right hip; Z53.21 Procedure and treatment not carried out due to patient leaving prior to being seen by health care provider

== ENCOUNTER 2021-03-07 00:09 | Emergency (ER) | payer OTHER ==
[~2021-03-07] VITALS: Ht 172.7 cm; Wt 76.2 kg
[2021-03-07 00:58] VITALS: BP 132/75
[2021-03-07] MEDS ORDERED: NAPROXEN250 MG PO (02:00)
== END 2021-03-07 02:36 | disposition home or self-care (01) ==
LOC: ED 00:09
DX: M25.551 Pain in right hip (principal); Z79.899 Other long term (current) drug therapy

== ENCOUNTER 2021-04-11 10:04 | Emergency (ER) | payer OTHER ==
[~2021-04-11 10:04] MED LIST changes: +NAPROXEN250 MG PO
[2021-04-11 10:08] VITALS: BP 110/58
[2021-04-11 10:29] LABS: BASO # 0.1 10*3/uL (0.0-0.1); BASO % 0.5 % (0.0-1.0); EOS # 0.2 10*3/uL (0.0-0.4); EOS % 1.7 % (1.0-4.0); HEMATOCRIT 29.4 % (37.0-47.0); LYMPH # 1.4 10*3/uL (1.3-4.4); LYMPH % 14.1 % (27.0-41.0); MEAN CELL VOLUME 85.2 fl (81.0-99.0); MEAN CORPUSCULAR HGB 27.2 pg (27.0-31.0); MEAN PLATELET VOLUME 9.9 fl (9.6-12.3); MONO % 9.8 % (3.0-9.0); NEUT # 7.4 10*3/uL (2.3-7.9); NEUT % 73.5 % (47.0-73.0); PLATELET COUNT AUTOMATED 287 10*3/uL (130-400); RED BLOOD COUNT 3.45 10*6/uL (4.10-5.10); RED CELL DISTRI WIDTH 13.7 % (0-14.5); WHITE BLOOD COUNT 10.1 10*3/uL (4.8-10.8)
[2021-04-11 10:42] LABS: INTERNATIONAL NORM RATIO 1.1 (2.0-3.5)
[2021-04-11 10:47] LABS: ALBUMIN 2.6 gm/dl (3.1-4.5); ALKALINE PHOSPHATASE 97 U/L (45-117); BUN 44 mg/dl (7-24); CHLORIDE 108 mmol/L (98-107); CREATININE 1.09 mg/dL (0.55-1.02); ETHYL ALCOHOL < 3.0 mg/dl (<3); LIPASE 122 U/L (73-393); SGOT/AST 24 IU/L (3-35); SGPT/ALT 27 U/L (12-78); SODIUM 140 mmol/L (136-145); TOTAL PROTEIN 7.4 gm/dL (6.4-8.2); TROPONIN I < 0.015 ng/ml (<0.045)
[2021-04-11 15:14] LABS: BILIRUBIN Negative (Negative); BLOOD Negative (Negative); CLARITY Clear (Clear); COLOR Yellow (Yellow); GLUCOSE Negative (Negative); KETONE Negative (Negative); LEUKO ESTERASE Negative (Negative); NITRITE Negative (Negative); PH 5.5 (4.5-8.0); SPECIFIC GRAVITY <= 1.005 (1.001-1.030); UROBILINOGEN 0.2 E.U./dl (0.0-1.0)
[2021-04-11 15:17] LABS: RBC 0-2 rbc/hpf (0-2); WBC 0-2 wbc/hpf (0-5)
[2021-04-11 15:35] LABS: URINE AMPHETAMINES < 1000 (1000ng/ml); URINE BARBITURATES < 200 (200ng/ml); URINE BENZODIAZEPINES < 200 (200ng/ml); URINE CANNABINOIDS (THC) < 50 (50ng/ml); URINE COCAINE > 300 (300ng/ml); URINE METHADONE < 300 (300ng/ml); URINE OPIATES < 300 (300ng/ml)
[2021-04-11 15:37] LABS: URINE PHENCYCLIDINE < 25 (25ng/ml)
== END 2021-04-11 15:35 | disposition left against medical advice (07) ==
LOC: ED 10:04
PROVIDERS: Emergency Medicine
DX: F19.10 Other psychoactive substance abuse, uncomplicated (principal); F17.200 Nicotine dependence, unspecified, uncomplicated; Z79.899 Other long term (current) drug therapy

== ENCOUNTER 2021-06-29 14:01 | Emergency (ER) | payer OTHER ==
[~2021-06-29] VITALS: Ht 172.7 cm; Wt 68.0 kg
[2021-06-29 14:21] VITALS: BP 93/66
[2021-06-29] MEDS ORDERED: NAPROSYN500 MG PO (16:54)
== END 2021-06-29 17:12 | disposition home or self-care (01) ==
LOC: ED 14:01
DX: M53.3 Sacrococcygeal disorders, not elsewhere classified (principal); Z79.899 Other long term (current) drug therapy; Z87.891 Personal history of nicotine dependence